=== PATIENT | male | born 1970 | race Caucasian/White ===

== ENCOUNTER 2017-08-29 15:18 | Emergency (ER) | payer MEDICARE, MEDICAID ==
[2017-08-29 15:28] VITALS: BP 118/73
[2017-08-29] MEDS ORDERED: CIPROFLOXACIN HCL/DEXAMETH OTIC DROP 7.5 ML AS ONE (15:33)
--- NOTE | 2017-08-29 15:42 | ER Document Report ---
HPI - HPI Pain Level: 4 Notes: Patient is a 46-year-old male with no significant past medical history presents to the ED complaining of swimmer's ear to his left ear. Patient states that he was swimming and had his ear plug pulled out by his child and because water to get him. Patient states that he has had swimmer's ear multiple times in the past. Patient states that his symptoms have been ongoing for last 4 days and involve pain and some white discharge. Pain does not radiate. He has no dizziness or tinnitus. Denies any drug allergies. No other concerns or complaints. Denies any headache, fever, head injury, neck pain, changes in hearing, URI, sore throat, chest pain, palpitations, syncope, cough, shortness of breath, wheeze, dyspnea, abdominal pain, nausea/vomiting/diarrhea, urinary retention, dysuria, hematuria, numbness/tingling, or rash. - ROS Systems Reviewed and Negative: Yes All other systems reviewed and negative Past Medical History - Social History Smoking Status: Never Smoker Family History: Reviewed & Not Pertinent Vertical Provider Document - CONSTITUTIONAL Agree With Documented VS: Yes Notes: PHYSICAL EXAMINATION: GENERAL: Well-appearing, well-nourished and in no acute distress. HEAD: Atraumatic, normocephalic. EYES: Pupils equal round and reactive to light, extraocular movements intact, sclera anicteric, conjunctiva are normal. ENT: Rt EAC cerumen impaction.Rt TM unable to visualize. Lt EAC swollen, tender , purulent discharge. + tragus tenderness. No mastoid tenderness or swelling. Lt TM intact b/l without erythema, fluid, or perforation. Nares patent and without discharge. oropharynx clear without exudates. No tonsilar hypertrophy or erythema. Moist mucous membranes. No sinus tenderness. NECK: Normal range of motion, supple without lymphadenopathy LUNGS: Breath sounds clear to auscultation bilaterally and equal. No wheezes rales or rhonchi. HEART: Regular rate and rhythm without murmurs, rubs, gallops. Extremities: No cyanosis, clubbing, or edema b/l. Peripheral pulses 2+. Capillary refill less than 3 seconds. NEUROLOGICAL: Cranial nerves grossly intact. Normal speech, normal gait. PSYCH: Normal mood, normal affect. SKIN: Warm, Dry, normal turgor, no rashes or lesions noted. - INFECTION CONTROL TRAVEL OUTSIDE OF THE [place] IN LAST 30 DAYS: No Course - Re-evaluation Re-evalutation: 08/29/17 15:45 Patient is an afebrile, well-hydrated, 46-year-old male who presents to the ED with acute otitis externa of his left ear. Vitals are acceptable without any significant tachycardia, tachypnea, or hypoxia. PE is otherwise unremarkable. No labs or imaging warranted at this time based on H&P. A wick was placed today and Ciprodex applied. Patient is nontoxic-appearing. Low suspicion for any sepsis, meningitis, severe dehydration, respiratory compromise, mastoiditis , or other systemic emergent condition at this time. Patient is aware that condition can change from initial presentation and he needs to monitor symptoms closely and seek medical attention with any acute changes. Conservative measures for symptoms. Recheck with your PCM in 2-3 days. Consider consult ENT. Return to the ED with any worsening/concerning symptoms otherwise as reviewed in discharge. Patient is in agreement. - Vital Signs Vital signs: Temp Pulse Resp BP Pulse Ox 98.0 F 90 16 118/73 97 08/29/17 15:26 08/29/17 15:26 08/29/17 15:26 08/29/17 15:26 08/29/17 15:26 Procedures - Additional Procedures Ear wick placement Time performed: 15:45 Additional Procedures: Other - Ear wick was placed the left ear with forceps successfully without any complications. Patient tolerated procedure well. Ciprodex applied. Discharge - Discharge Clinical Impression: Acute otitis externa of left ear Qualifiers: Otitis externa type: unspecified type Qualified Code(s): H60.502 - Unspecified acute noninfective otitis externa, left ear Condition: Stable Disposition: HOME, SELF-CARE Instructions: Using Ear Drops with a Wick ([facility]), Otitis Externa ([facility]) Additional Instructions: My ear instruction Maintain adequate fluid intake Take meds as directed tylenol/ibuprofen as needed Keep ears clean over the counter cold medication as needed for symptoms Avoid use of q-tips F/u: with your PCM in 3-5 days for a recheck Return to the ED with any fever, worsening pain, chest pain, palpitations, syncope, worsening BALLARD, neck pain/stiffness, shortness of breath, wheezing, drooling, trouble swallowing/breathing, abdominal pain, n/v/d, rash, or worsening/concerning symptoms otherwise. Prescriptions: Ciprofloxacin HCl/Dexameth [Ciprodex Otic Suspension 7.5 ml Bottle] 4 drop OT BID #1 bottle Referrals: DANIELE MISHRA DO [ASSOCIATE] - Follow up as needed
== END 2017-08-29 16:26 | disposition home or self-care (01) ==
LOC: ER 15:18
DX: H60.502 Unspecified acute noninfective otitis externa, left ear (principal); H61.21 Impacted cerumen, right ear
CPT/HCPCS: 99282; J3490